=== PATIENT | male | born 1965 | race Caucasian/White ===

== ENCOUNTER 2022-11-07 19:22 | Emergency (ER) | payer OTHER ==
[~2022-11-07] VITALS: Ht 172.7 cm; Wt 57.1 kg
[~2022-11-07 19:22] MED LIST: ALBU90OI INH; HYDACE5 PO; Monodox100 MG PO; NAPR250 PO; NAPR500 PO; SPACE CHAMBER1 EACH MC
[2022-11-07 19:36] VITALS: BP 146/92
== END 2022-11-07 21:33 | disposition home or self-care (01) ==
LOC: ER 19:22
DX: R07.81 Pleurodynia (principal); F17.200 Nicotine dependence, unspecified, uncomplicated; J44.9 Chronic obstructive pulmonary disease, unspecified; W01.198A Fall on same level from slipping, tripping and stumbling with subsequent striking against other object, initial encounter
CPT/HCPCS: 71046; 99283-25; A9270